=== PATIENT | male | born 1990 | race Two or more races ===

== ENCOUNTER 2021-10-06 04:43 | Emergency (ER) | payer OTHER ==
[2021-10-06 05:16] VITALS: BP 107/60; PULSE 72; TEMP 98.1; BMI 25.5
[2021-10-06] MEDS ORDERED: LIDOCAINE 5% TOPICAL PATCH TP ONE (05:32)
[2021-10-06] MEDS ORDERED: METHOCARBAMOL 750 MG TAB PO ONE (05:32)
[2021-10-06] MEDS ORDERED: ACETAMINOPHEN 500 MG TABLET (FP) PO ONE (05:33)
[2021-10-06] MEDS ORDERED: KETOROLAC TROMETHAMINE 15 MG/ML VIAL IM ONE (05:33)
[2021-10-06] MEDS ORDERED: KETOROLAC TROMETHAMINE 30 MG/1 ML VIAL IM ONE (05:34)
[2021-10-06] MEDS ORDERED: LIDOCAINE 5% TOPICAL PATCH ONE (05:37)
[2021-10-06] MEDS ORDERED: KETOROLAC TROMETHAMINE 30 MG/1 ML VIAL ONE (05:37)
[2021-10-06] MEDS ORDERED: METHOCARBAMOL 500 MG TABLET PO ONE (05:37)
[2021-10-06] MEDS ORDERED: METHOCARBAMOL 500 MG TABLET ONE (05:37)
[2021-10-06] MEDS ORDERED: ACETAMINOPHEN 325 MG TABLET (FP) ONE (05:37)
[2021-10-06] MEDS ORDERED: LIDOCAINE PATCH REMOVAL MC SCH (22:00)
== END 2021-10-06 06:26 | disposition home or self-care (01) ==
LOC: JER 04:43
PROC: 3E0233Z Introduction of Anti-inflammatory into Muscle, Percutaneous Approach (ICD-10-PCS; principal; 2021-10-06)
DX: M54.50 Low back pain, unspecified (principal)
CPT/HCPCS: 72100-TC-FY; 99284-25

== ENCOUNTER 2022-07-01 23:40 | Emergency (ER) | payer OTHER ==
[2022-07-01 23:46] VITALS: BP 130/86; PULSE 81; RESP 18; TEMP 98.4; BMI 24.6
[2022-07-02] MEDS ORDERED: IBUPROFEN 600 MG TABLET (FP) PO ONE ×2 (00:11→00:21)
[2022-07-02] MEDS ORDERED: guaiFENesin 200 MG/10 ML 10 ML UNIT-DOSE CUPS PO ONE (00:11)
[2022-07-02] MEDS ORDERED: guaiFENesin/D-METHORPHAN HB 10 ML UNIT-DOSE CUPS ONE (00:21)
== END 2022-07-02 00:26 | disposition home or self-care (01) ==
LOC: JER 23:40
DX: J06.9 Acute upper respiratory infection, unspecified (principal)
CPT/HCPCS: 0241U-QW; 99283-25

== ENCOUNTER 2022-11-09 10:00 | Emergency (ER) | payer OTHER ==
[2022-11-09 10:09] VITALS: BP 131/76; PULSE 78; RESP 16; TEMP 97.6; BMI 24.5
[2022-11-09] MEDS ORDERED: DEXAMETHASONE SOD PHOSPHATE 10 MG/1 ML VIAL IM ONE (10:22)
[2022-11-09] MEDS ORDERED: ACETAMINOPHEN 325 MG TABLET (FP) PO ONE (10:22)
[2022-11-09] MEDS ORDERED: LOPERAMIDE HCL 2 MG CAPSULE PO ONE (10:22)
[2022-11-09] MEDS ORDERED: KETOROLAC TROMETHAMINE 15 MG/ML VIAL IM ONE (10:22)
[2022-11-09] MEDS ORDERED: KETOROLAC TROMETHAMINE 15 MG/ML VIAL ONE (10:27)
[2022-11-09] MEDS ORDERED: DEXAMETHASONE SOD PHOSPHATE 10 MG/1 ML VIAL ONE (10:27)
[2022-11-09] MEDS ORDERED: ACETAMINOPHEN 325 MG TABLET (FP) ONE (10:27)
[2022-11-09] MEDS ORDERED: LOPERAMIDE HCL 2 MG CAPSULE ONE (10:35)
== END 2022-11-09 11:20 | disposition home or self-care (01) ==
LOC: JERFT 10:00
PROC: 3E023GC Introduction of Other Therapeutic Substance into Muscle, Percutaneous Approach (ICD-10-PCS; principal; 2022-11-09)
DX: R19.7 Diarrhea, unspecified (principal)
CPT/HCPCS: 0241U-QW; 96372; 99284-25; J1100